=== PATIENT | female | born 1995 | race Caucasian/White ===

== ENCOUNTER 2017-01-24 13:02 | Emergency (ER) | payer OTHER | END 2017-01-24 19:17 | disposition home or self-care (01) | DX: R10.32 Left lower quadrant pain (principal); O26.891 Other specified pregnancy related conditions, first trimester; Z3A.01 Less than 8 weeks gestation of pregnancy ==

== ENCOUNTER 2017-08-10 11:03 | Outpatient (CLI) | payer OTHER | END 2017-08-10 11:04 | disposition home or self-care (01) | LOC: WFO 11:03 | PROVIDERS: ATTEND Obstetrics & Gynecology | DX: Z53.9 Procedure and treatment not carried out, unspecified reason (principal) ==